=== PATIENT | female | born 1995 | race African-American/Black ===

== ENCOUNTER 2018-01-05 09:50 | Inpatient (IN) | payer OTHER ==
[2018-01-05] VITALS (16 sets, daily range): BP systolic 98–137; BP diastolic 53–98
[~2018-01-05] VITALS: Ht 157.5 cm; Wt 75.0 kg
[2018-01-05 11:38] LABS: HEMATOCRIT 30.6 % (36.0-46.0); HEMOGLOBIN 10.7 G/DL (11.9-15.5); MCH 25.2 PG (29.0-34.0); MCV 72.2 FL (83-99); NRBC (%) 0.2 /100 WBC (0-0); RBC DIS.WIDTH-CV 19.7 % (11.8-14.6); RED BLOOD COUNT 4.24 M/uL (3.80-5.20); WHITE BLOOD COUNT 10.1 K/uL (4.1-10.2)
[2018-01-05 12:16] LABS: ANISOCYTOSIS 2+; BASOPHIL (%) 0.3 % (0-1); EOSINOPHIL (%) 0.3 % (0-5); GIANT PLATELETS 2+; HYPOCHROMASIA 1+; IMMATURE GRANULOCYTE (%) 0.4 % (0.0-0.7); LYMPHOCYTE (%) 16.4 % (15-42); LYMPHOCYTE COUNT 1.7 K/uL (1.0-2.8); MACROCYTES 1+; MONOCYTE COUNT 0.7 K/uL (0-0.8); NEUTROPHIL (%) 75.6 % (45-76); NEUTROPHIL COUNT 7.6 K/uL (1.8-6.4); PLAT.SUFFICIENCY ADEQUATE; PLATELET CLUMPS PRESENT - PLATELET COUNT APPEARS ADEQUATE; PLATELET COUNT 237 K/uL (156-360); POLYCHROMASIA 1+; TARGET CELLS 1+
[2018-01-05 12:20] LABS: AMPHETAMINE NEGATIVE (500 ng/mL); BARBITURATES NEGATIVE (200 ng/mL); BENZODIAZEPINES NEGATIVE (150 ng/mL); BUPRENORPHINE NEGATIVE (10 ng/mL); COCAINE NEGATIVE (150 ng/mL); METHADONE NEGATIVE (200 ng/mL); METHAMPHETAMINE NEGATIVE (500 ng/mL); OPIATES (MORPHINE) NEGATIVE (100 ng/mL); OXYCODONE NEGATIVE (100 ng/mL); PHENCYCLIDINE NEGATIVE (25 ng/mL); PROPOXYPHENE NEGATIVE (300 ng/mL); THC CANNABINOIDS NEGATIVE (50 ng/mL); TRICYCLIC ANTIDEPRESSANTS NEGATIVE (300 ng/mL)
[2018-01-05 13:33] LABS: TREPONEMA ANTIBODY NEGATIVE (NEGATIVE)
[2018-01-06] VITALS (26 sets, daily range): BP systolic 109–153; BP diastolic 55–84
[2018-01-07] VITALS (22 sets, daily range): BP systolic 105–144; BP diastolic 55–87
[2018-01-07 08:40] LABS: BASOPHIL (%) 0.2 % (0-1); EOSINOPHIL (%) 0.2 % (0-5); HEMATOCRIT 29.5 % (36.0-46.0); HEMOGLOBIN 9.7 G/DL (11.9-15.5); IMMATURE GRANULOCYTE (%) 0.4 % (0.0-0.7); LYMPHOCYTE (%) 19.7 % (15-42); LYMPHOCYTE COUNT 1.6 K/uL (1.0-2.8); MCH 24.2 PG (29.0-34.0); MCHC 32.9 G/DL (30.0-36.0); MCV 73.6 FL (83-99); MONOCYTE (%) 10.5 % (3-12); MONOCYTE COUNT 0.9 K/uL (0-0.8); NEUTROPHIL COUNT 5.6 K/uL (1.8-6.4); PLATELET COUNT 195 K/uL (156-360); RBC DIS.WIDTH-CV 19.7 % (11.8-14.6); RBC DIS.WIDTH-SD 51.2 % (39-53); RED BLOOD COUNT 4.01 M/uL (3.80-5.20); WHITE BLOOD COUNT 8.1 K/uL (4.1-10.2)
[2018-01-07] MEDS ORDERED: ENDOCET 5-3251 EACH PO (10:09)
[2018-01-07] MEDS ORDERED: PRENATAL TABLE1 EAC3 PO (10:09)
[2018-01-07] MEDS ORDERED: IBUPROFEN800 MG PO (10:09)
[2018-01-08 06:09] LABS: BASOPHIL (%) 0.3 % (0-1); EOSINOPHIL (%) 0.3 % (0-5); HEMATOCRIT 24.8 % (36.0-46.0); HEMOGLOBIN 8.5 G/DL (11.9-15.5); IMMATURE GRANULOCYTE (%) 0.5 % (0.0-0.7); LYMPHOCYTE COUNT 2.4 K/uL (1.0-2.8); MCH 24.8 PG (29.0-34.0); MCHC 34.3 G/DL (30.0-36.0); MCV 72.3 FL (83-99); MONOCYTE (%) 9.7 % (3-12); MONOCYTE COUNT 1.2 K/uL (0-0.8); NEUTROPHIL (%) 70.2 % (45-76); NEUTROPHIL COUNT 8.8 K/uL (1.8-6.4); PLATELET COUNT 204 K/uL (156-360); RBC DIS.WIDTH-CV 19.5 % (11.8-14.6); RBC DIS.WIDTH-SD 49.5 % (39-53); RED BLOOD COUNT 3.43 M/uL (3.80-5.20); WHITE BLOOD COUNT 12.5 K/uL (4.1-10.2)
[2018-01-08 07:27] VITALS: BP 124/69
[2018-01-08 10:57] VITALS: BP 127/71
[2018-01-08 15:00] VITALS: BP 114/64
[2018-01-09 07:18] VITALS: BP 108/69
[2018-01-09] MEDS ORDERED: FEROSUL325 MG PO (09:47)
[2018-01-09 15:25] VITALS: BP 115/59
[2018-01-10 07:23] VITALS: BP 131/69
[2018-01-10 14:59] VITALS: BP 112/78
== END 2018-01-10 19:18 | disposition home or self-care (01) | DRG 766 ==
LOC: LDRP-OP 09:50 → 2WEST 09:51
PROVIDERS: Advanced Practice Midwife; Obstetrics & Gynecology
PROC: 3E0DXGC Introduction of Other Therapeutic Substance into Mouth and Pharynx, External Approach (ICD-10-PCS; 2018-01-05)
PROC: 10907ZC Drainage of Amniotic Fluid, Therapeutic from Products of Conception, Via Natural or Artificial Opening (ICD-10-PCS; 2018-01-05)
PROC: 3E033VJ Introduction of Other Hormone into Peripheral Vein, Percutaneous Approach (ICD-10-PCS; 2018-01-06)
PROC: 3E0S3BZ Introduction of Anesthetic Agent into Epidural Space, Percutaneous Approach (ICD-10-PCS; 2018-01-06)
PROC: 00HU33Z Insertion of Infusion Device into Spinal Canal, Percutaneous Approach (ICD-10-PCS; 2018-01-06)
PROC: 10D00Z1 Extraction of Products of Conception, Low, Open Approach (ICD-10-PCS; principal; 2018-01-07)
DX: O61.0 Failed medical induction of labor (principal); O99.02 Anemia complicating childbirth; Z37.0 Single live birth; O76 Abnormality in fetal heart rate and rhythm complicating labor and delivery; Z3A.37 37 weeks gestation of pregnancy; O42.113 Preterm premature rupture of membranes, onset of labor more than 24 hours following rupture, third trimester; O63.1 Prolonged second stage (of labor); O70.0 First degree perineal laceration during delivery; O12.04 Gestational edema, complicating childbirth; D50.9 Iron deficiency anemia, unspecified
CPT/HCPCS: 85025; 86780; 86850; 86900; 86901; 88307; C1755; G0378; J0330; J0456; J0595; J0690; J1100; J1200; J2274; J2400; J2405; J2590; J3010; J7120; Q0169; S0020